=== PATIENT | male | born 1980 | race Caucasian/White ===

== ENCOUNTER 2021-06-20 17:54 | Emergency (ER) | payer SELFPAY ==
[~2021-06-20] VITALS: Ht 172.7 cm; Wt 77.0 kg
[2021-06-20 18:00] VITALS: BP 118/87
[2021-06-20] MEDS ORDERED: ACETAMINOPHEN 325MG TABLET PO ONE (18:45)
[2021-06-20] MEDS ORDERED: TOPUD PO (21:16)
== END 2021-06-20 21:53 | disposition left against medical advice (07) ==
LOC: ER 17:54
DX: B34.9 Viral infection, unspecified (principal); I49.8 Other specified cardiac arrhythmias; E11.9 Type 2 diabetes mellitus without complications; I10 Essential (primary) hypertension; Z98.890 Other specified postprocedural states
CPT/HCPCS: 71045; 93005; 99283

== ENCOUNTER 2022-06-16 22:41 | Emergency (ER) | payer SELFPAY ==
[~2022-06-16] VITALS: Ht 165.1 cm; Wt 82.3 kg
[~2022-06-16 22:41] MED LIST: TOPUD PO
[2022-06-16 22:46] VITALS: BP 132/93
== END 2022-06-17 02:45 | disposition left against medical advice (07) ==
LOC: ER 22:41
DX: R06.02 Shortness of breath (principal); Z53.21 Procedure and treatment not carried out due to patient leaving prior to being seen by health care provider
CPT/HCPCS: 93005; 99281